=== PATIENT | female | born 1960 | race Hispanic/Latino ===

== ENCOUNTER → 2023-02-21 | Outpatient (CLI) | payer MEDICARE ==
[~2023-02-21] MED LIST: DESI25TA16 PO; DIPH25CA53 PO; LEVO100V IV; LOSA100T59 PO; PANT40TA PO; SUCR1TAB2 PO
== END | disposition home or self-care (01) ==
LOC: RAH 09:08
PROVIDERS: ATTEND Surgery
DX: K44.9 Diaphragmatic hernia without obstruction or gangrene (principal); K31.84 Gastroparesis; N19 Unspecified kidney failure; E66.9 Obesity, unspecified
CPT/HCPCS: 74240

== ENCOUNTER → 2023-02-26 | Outpatient (CLI) | payer MEDICARE | END | disposition home or self-care (01) | LOC: RAH 09:06 | PROVIDERS: ATTEND Surgery | DX: K44.9 Diaphragmatic hernia without obstruction or gangrene (principal); K31.84 Gastroparesis; N19 Unspecified kidney failure; E66.9 Obesity, unspecified | CPT/HCPCS: 78264; A9541 ==

== ENCOUNTER 2023-04-20 06:42 | Observation (INO) | payer MEDICARE ==
[~2023-04-20] VITALS: Ht 157.5 cm; Wt 120.3 kg
[~2023-04-20 06:42] MED LIST changes: +ALLO100T PO; +ATOR40TA69 PO; +BACL20TA PO; +CHOL500062 PO; -DESI25TA16 PO; +DEXL60CA6 PO; +DULA0.75 SQ; +EMPA10TA PO; +FURO20TA4 PO; +INSU100I24 SQ; -LEVO100V IV; +LEVO150C4 PO; -LOSA100T59 PO; +METO-391 PO; +MV-M1CAP24 PO; +ONDA8TAB12 PO; -PANT40TA PO; +PARO-37 PO; +PRAM0.5T12 PO; +SITA100T12 PO; +SPIR25TA6 PO; -SUCR1TAB2 PO
[2023-04-20 06:45] VITALS: BP 121/69; PULSE 65; RESP 12
[2023-04-20] MEDS ORDERED: 0.9%NACL 1000ML 1,000 ML IV ONE (07:48)
[2023-04-20 08:11] LABS: CREATININE 1.9 mg/dL (0.5-1.5); POTASSIUM 4.8 mmol/L (3.5-5.1)
[2023-04-20] MEDS ORDERED: INSULIN HUMULIN R 100 UNIT/ML 3ML SQ ONE (11:00)
[2023-04-22] MEDS ORDERED: INSU100V IV (11:41)
== END 2023-04-20 11:20 | disposition home or self-care (01) ==
LOC: DAH 06:42 → ENDO 06:42 → DAHIP 06:43 → ENDO 06:43 → DAHIP 11:20
PROVIDERS: ADMIT Surgery; ATTEND Surgery
DX: K44.9 Diaphragmatic hernia without obstruction or gangrene (principal)
CPT/HCPCS: 36415; 80048; 82948; 96360; 96361; G0378; J7030

== ENCOUNTER 2023-05-03 06:28 | Day surgery (SDC) | payer MEDICARE ==
[2023-05-03] VITALS (11 sets, daily range): BP systolic 102–136; BP diastolic 52–72; PULSE 59–76; RESP 14–17
[~2023-05-03] VITALS: Ht 157.5 cm; Wt 120.3 kg
[~2023-05-03 06:28] MED LIST changes: -DIPH25CA53 PO; +INSU100V IV
[2023-05-03] MEDS ORDERED: 0.9%NACL 1000ML 1,000 ML IV ONE (07:20)
[2023-05-03] MEDS ORDERED: DEXTROSE 50%-WATER 50 ML DISP.SYRIN IV ONE (07:21)
[2023-05-03] MEDS ORDERED: PROPOFOL 10 MG/ML 20ML VIAL IV ONE (07:25)
== END 2023-05-03 09:35 | disposition home or self-care (01) ==
LOC: ENDO 06:28 → DAH 06:28 → ENDO 09:35
PROVIDERS: ATTEND Surgery
DX: K44.9 Diaphragmatic hernia without obstruction or gangrene (principal); K31.7 Polyp of stomach and duodenum; K29.50 Unspecified chronic gastritis without bleeding; K21.9 Gastro-esophageal reflux disease without esophagitis; K22.89 Other specified disease of esophagus; K31.84 Gastroparesis; E11.22 Type 2 diabetes mellitus with diabetic chronic kidney disease; N18.30 Chronic kidney disease, stage 3 unspecified; E03.9 Hypothyroidism, unspecified; G43.909 Migraine, unspecified, not intractable, without status migrainosus; M19.90 Unspecified osteoarthritis, unspecified site; E66.9 Obesity, unspecified; Z90.49 Acquired absence of other specified parts of digestive tract; Z98.890 Other specified postprocedural states; Z90.5 Acquired absence of kidney; Z88.8 Allergy status to other drugs, medicaments and biological substances; Z79.899 Other long term (current) drug therapy; Z68.42 Body mass index [BMI] 45.0-49.9, adult
CPT/HCPCS: 82948 ×2; 43239; 43251; J7030 ×2; J7070; J2704; A4620; A4215 ×2; A4223 ×2; A7002; A4222; A4221; A4663; A4606; J3490

== ENCOUNTER → 2023-10-08 | Outpatient (CLI) | payer MEDICARE ==
[~2023-10-08] MED LIST changes: +DIATR MEGLU/DIATRIZOATE SODIUM 30 ML BOTTLE ONE; -DULA0.75 SQ; -EMPA10TA PO; +EMPA25TA PO; +FOLI0.8T22 PO; -INSU100V IV; +ONDA-245 SL; -ONDA8TAB12 PO; +PIOG30TA70 PO; -SITA100T12 PO; +TIRZ7.5P SQ
[2023-10-08 08:49] LABS: BASOPHILS # (AUTO) 0.05 K/uL (0.00-0.20); BASOPHILS % (AUTO) 0.9 % (0.0-5.0); EOSINOPHILS # (AUTO) 0.19 K/uL (0.00-0.70); EOSINOPHILS % (AUTO) 3.3 % (0.0-8.0); HEMATOCRIT 43.8 % (36-48); IMMATURE GRANULOCYTE ABSOLUTE 0.02 K/uL (0-1); LYMPHOCYTES # (AUTO) 3.2 K/uL (1.0-4.8); LYMPHOCYTES % (AUTO) 55.1 % (21.0-51.0); MEAN CORPUSCULAR HGB CONC 31.7 g/dL (32.0-36.0); MONOCYTES # (AUTO) 0.3 K/uL (0.1-1.0); MONOCYTES % (AUTO) 4.8 % (3.0-13.0); NEUTROPHILS # (AUTO) 2.1 K/uL (1.8-7.7); NEUTROPHILS % (AUTO) 35.6 % (40.0-77.0); PLATELET COUNT (AUTO) 216 K/uL (130-400); RED BLOOD CELL COUNT(AUTO) 5.15 MIL/uL (4.00-5.50); RED CELL DISTRIBUTION WIDTH 15.5 % (11.0-15.5); WHITE BLOOD COUNT (AUTO) 5.8 K/uL (4.8-10.8)
[2023-10-08 09:07] LABS: ALBUMIN 3.2 g/dL (3.5-5.0); CREATININE 1.6 mg/dL (0.5-1.0); POTASSIUM 4.3 mmol/L (3.5-5.1); TOTAL PROTEIN, SERUM 7.1 g/dL (6.0-8.3)
== END | disposition home or self-care (01) ==
LOC: RAH 08:03
PROVIDERS: ATTEND Surgery
DX: K21.9 Gastro-esophageal reflux disease without esophagitis (principal); K31.84 Gastroparesis; E08.69 Diabetes mellitus due to underlying condition with other specified complication; E66.9 Obesity, unspecified; R11.10 Vomiting, unspecified; N19 Unspecified kidney failure; Z90.49 Acquired absence of other specified parts of digestive tract; Z98.890 Other specified postprocedural states
CPT/HCPCS: 74240; 80053; 85025; 84425; 36415; Q9963

== ENCOUNTER 2023-11-21 06:30 | Day surgery (SDC) | payer MEDICARE ==
[2023-11-21] VITALS (12 sets, daily range): BP systolic 115–134; BP diastolic 57–72; PULSE 61–80; RESP 15–18
[~2023-11-21] VITALS: Ht 157.5 cm; Wt 105.7 kg
[~2023-11-21 06:30] MED LIST changes: -ALLO100T PO; -BACL20TA PO; +DEXL60CA18 PO; -DEXL60CA6 PO; -DIATR MEGLU/DIATRIZOATE SODIUM 30 ML BOTTLE ONE; -EMPA25TA PO; -INSU100I24 SQ; +INSU100V37 SQ; -MV-M1CAP24 PO; -PARO-37 PO; -PRAM0.5T12 PO; +TIRZ10PE SQ; -TIRZ7.5P SQ
[2023-11-21] MEDS: 0.9%NACL 1000ML 1,000 ML IV ONE (07:19)
[2023-11-21] MEDS ORDERED: PROPOFOL 10 MG/ML 20ML VIAL IV ONE (08:55)
[2023-11-21] MEDS ORDERED: LIDOCAINE PF 100MG/5ML (2%) SYRINGE 5ML ONE (08:55)
== END 2023-11-21 11:35 | disposition home or self-care (01) ==
LOC: ENDO 06:30 → DAH 06:30 → ENDO 11:35
PROVIDERS: ATTEND Surgery
DX: R10.13 Epigastric pain (principal); K21.00 Gastro-esophageal reflux disease with esophagitis, without bleeding; K31.89 Other diseases of stomach and duodenum; K44.9 Diaphragmatic hernia without obstruction or gangrene; G43.909 Migraine, unspecified, not intractable, without status migrainosus; K31.84 Gastroparesis; K22.89 Other specified disease of esophagus; E66.9 Obesity, unspecified; M19.90 Unspecified osteoarthritis, unspecified site; I12.9 Hypertensive chronic kidney disease with stage 1 through stage 4 chronic kidney disease, or unspecified chronic kidney disease; E11.22 Type 2 diabetes mellitus with diabetic chronic kidney disease; N18.4 Chronic kidney disease, stage 4 (severe); Z88.5 Allergy status to narcotic agent; Z88.8 Allergy status to other drugs, medicaments and biological substances; Z79.899 Other long term (current) drug therapy; Z98.84 Bariatric surgery status; Z68.41 Body mass index [BMI] 40.0-44.9, adult
CPT/HCPCS: 43239; 82948 ×2; J7030; J2001; J2704; A4620; A4215; A4223; A4222; J3490

== ENCOUNTER → 2024-05-02 | Outpatient (CLI) | payer MEDICARE ==
[~2024-05-02] MED LIST changes: +DIATR MEGLU/DIATRIZOATE SODIUM 30 ML BOTTLE ONE
--- NOTE | 2024-05-02 16:31 | HMCIMG ---
UPPER GI TRACT, WO KUB REASON: GASTROPARESIS. COMPARISON: None TECHNIQUE: Gastrografin upper GI series study was performed. FINDINGS: There is no obstruction to the antegrade passage of contrast from mild through jejunum. A normal esophageal stripping wave is seen. No evidence of hiatal hernia is seen. There is gastroesophageal reflux into the level of mid thoracic esophagus. Stomach is moderately distended. No ulceration or mass lesion is seen. Duodenal bulb and duodenal sweep are unremarkable. IMPRESSION: No obstruction is seen. Gastroesophageal reflux to the level of mid thoracic esophagus.
== END | disposition home or self-care (01) ==
LOC: RAH 08:26
PROVIDERS: ATTEND Surgery
DX: K21.00 Gastro-esophageal reflux disease with esophagitis, without bleeding (principal); K31.84 Gastroparesis; K31.89 Other diseases of stomach and duodenum
CPT/HCPCS: 74240; Q9963

== ENCOUNTER → 2024-05-12 | Outpatient (CLI) | payer MEDICARE ==
[~2024-05-12] MED LIST changes: -DIATR MEGLU/DIATRIZOATE SODIUM 30 ML BOTTLE ONE
--- NOTE | 2024-05-12 15:14 | HMCIMG ---
NM GASTRIC EMPTYING STUDY REASON: GASTROPARESIS. COMPARISON: None TECHNIQUE: Nuclear gastric emptying study was performed with 1.5 mCi of technetium sulfa colloid with scrambled eggs through oral route. FINDINGS: T half of gastric emptying is 26 minutes. IMPRESSION: Normal gastric emptying with T half of 26 minutes.
== END | disposition home or self-care (01) ==
LOC: RAH 10:12
PROVIDERS: ATTEND Surgery
DX: K31.84 Gastroparesis (principal)
CPT/HCPCS: 78264; A9541

== ENCOUNTER 2024-08-27 15:20 | Emergency (ER) | payer MEDICARE ==
[~2024-08-27] VITALS: Ht 157.5 cm; Wt 102.5 kg
[~2024-08-27 15:20] MED LIST changes: -LEVO150C4 PO; +LEVO150C5 PO
--- NOTE | 2024-08-27 15:43 | EKG ---
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
[2024-08-27 15:56] LABS: BASOPHILS # (AUTO) 0.03 K/uL (0.00-0.20); BASOPHILS % (AUTO) 0.5 % (0.0-5.0); EOSINOPHILS # (AUTO) 0.13 K/uL (0.00-0.70); EOSINOPHILS % (AUTO) 2.1 % (0.0-8.0); HEMATOCRIT 44.7 % (36-48); IMMATURE GRANULOCYTE ABSOLUTE 0.01 K/uL (0-1); LYMPHOCYTES # (AUTO) 2.8 K/uL (1.0-4.8); MEAN CORPUSCULAR HEMOGLOBIN 28.2 pg (27.0-33.0); MEAN CORPUSCULAR HGB CONC 32.7 g/dL (32.0-36.0); MEAN CORPUSCULAR VOLUME 86.5 fL (79-99); MONOCYTES # (AUTO) 0.4 K/uL (0.1-1.0); MONOCYTES % (AUTO) 6.2 % (3.0-13.0); NEUTROPHILS # (AUTO) 2.8 K/uL (1.8-7.7); PLATELET COUNT (AUTO) 264 K/uL (130-400); RED BLOOD CELL COUNT(AUTO) 5.17 MIL/uL (4.00-5.50); WHITE BLOOD COUNT (AUTO) 6.1 K/uL (4.8-10.8)
[2024-08-27 16:06] LABS: CREATININE 2.2 mg/dL (0.5-1.0); POTASSIUM 4.2 mmol/L (3.5-5.1)
[2024-08-27 16:15] LABS: ALBUMIN 3.6 g/dL (3.5-5.0); BILIRUBIN,DIRECT 0.2 mg/dL (0.0-0.3); BILIRUBIN,TOTAL 0.8 mg/dL (0.2-1.0); TOTAL PROTEIN, SERUM 7.5 g/dL (6.0-8.3)
--- NOTE | 2024-08-27 16:30 | HMCIMG ---
Exam Type: CT ABDOMEN/PELVIS W/O CONTRAST Clinical Information: abdominal pain Comparison: None CT Dose Index (CTDI): 10.20 mGy Dose Length Product (DLP): 530.00 total mGy-cm PROTOCOL: Routine noncontrast helical scanning of the abdomen and pelvis was performed at 5mm collimation. Findings: No evidence of nephro or ureterolithiasis is found. No hydronephrosis or ureteral dilatation is seen. The right kidney surgically absent. The lung bases are clear. The stomach is unremarkable. It shows no wall thickening. No gross ulceration is seen. It is not overly distended. There are no surrounding inflammatory changes. No wall lesions are identified to suggest cancer. The spleen is unremarkable. It is not enlarged. The pancreas shows normal anatomy. It is not fatty replaced. It shows no lesions. The pancreatic duct is not dilated. The gallbladder is surgically absent. The adrenal glands are unremarkable. There is no enlargement. No lesions are noted. The liver is unremarkable. It shows no focal masses. The appendix is unremarkable. It shows no evidence of inflammation. No appendicolith is seen. The small bowel is unremarkable. There is no evidence of dilatation to suggest obstruction. No evidence of adynamic ileus is seen. There is no small bowel wall thickening to suggest enteritis. The colon is unremarkable. The urinary bladder is unremarkable. There is no wall thickening to suggest tumor or inflammation. There are no intraluminal calculi. There are no diverticula. There is no evidence of chronic bladder outlet obstruction. There is no evidence of urinary bladder distention to suggest urinary retention. The other pelvic structures are unremarkable. The bony and vascular structures are unremarkable for the patient's age. IMPRESSION: No acute pathology. This study was performed using dose reduction techniques to include automated exposure control and/or adjustment of the mA and/or kV according to patient size.
[2024-08-27] MEDS: DICYCLOMINE HCL 10 MG/5 ML ML PO ONE (17:39)
[2024-08-27] MEDS: MAG/ALUM/SIMETH 30 ML UDCUP PO ONE (17:39)
[2024-08-27] MEDS: LIDOCAINE HCL 2% VISCOUS 15 ML UDCUP PO ONE (17:39)
[2024-08-27] MEDS: FAMOTIDINE 20MG VIAL IV STA (17:39)
[2024-08-27] MEDS: ondanSETRON 4MG INJ IVP STA (17:40)
[2024-08-27] MEDS: 0.9%NACL 1000ML 1,000 ML IV STA (17:40)
--- NOTE | 2024-08-27 19:30 | ERN ---
ED Note History of Present Illness Stated Complaint: ABDOMINAL PAIN Chief Complaint: Abdominal Pain Time Seen by MD: 15:25 Time Seen by Midlevel: 15:30 Dictation: 63 -year-old female coming in with complaining of �burning �sensation to the epigastric region and unable to keep food down. Patient states she has not appointment with her GI specialist Dr. Escalante on the 12th of the month but stated decided to come and be evaluated because of the pain. Allergies: Coded Allergies: morphine (Unverified Allergy, Unknown, 04/19/23) nitrofurantoin (Unverified Allergy, Unknown, 04/30/14) Home Meds Reported Medications Insulin Degludec (Tresiba) 100 Unit/Ml Vial, 100 UNIT SQ AM, VIAL 11/20/23 Tirzepatide (Mounjaro) 10 Mg/0.5 Ml Pen.injctr, 10 MG SQ QWEEK 11/20/23 Metoprolol Succinate (Metoprolol Succinate) 50 Mg Tab.er.24h, 50 MG PO AM, TAB 11/20/23 Pioglitazone HCl (Pioglitazone HCl) 30 Mg Tablet, 30 MG PO DAILY, TAB 08/08/23 Folic Acid/Vitamin B Comp W-C (Roxanne-Evgeny Tablet) 0.8 Mg Tablet, 0.8 MG PO DAILY, TAB 08/08/23 Cholecalciferol (Vitamin D3) (Vitamin D3) 125 Mcg (5000 Unit) Tab.rapdis, 125 MCG PO DAILY, TAB 04/19/23 Atorvastatin Calcium (LIPITOR) 80 Mg Tablet, 80 MG PO DAILY, TAB 04/19/23 Furosemide (Furosemide) 20 Mg Tablet, 20 MG PO BIDMEALS, TAB 04/19/23 Dexlansoprazole (Dexlansoprazole Dr) 60 Mg Cap.dr.bp, 60 MG PO ACBKFST 04/19/23 Spironolactone (Spironolactone) 25 Mg Tablet, 25 MG PO DAILY, TAB 04/19/23 Ondansetron (Ondansetron Odt) 8 Mg Tab.rapdis, 8 MG SL TID PRN for NAUSEA/VOMITING, TAB 04/19/23 Levothyroxine Sodium (Levothyroxine) 150 Mcg Capsule, 150 MCG PO ACBKFST, CAP 04/19/23 Past Medical History Past Medical History: Anxiety, Arthritis, Diabetes-Type II, Diverticulosis, GERD, Hypertension, Hypothyroid, Migraines, Renal Disese Additional Past Medical Hx: PEPTIC ULCER DISEASE / VERTIGO / FATIGUE / DYSPHAGIA / HERNIA / GASTROPARE Surgical History: Cholecystectomy, BTL Social History: Negative Review of System Dictation Constitutional: Negative for fever,chills, and weight loss Eyes: Negative for injury, pain,redness, and discharge ENT: Negative for injury,pain or swelling Cardiovascular: Negative for chest pain, palpitations, and edema Respiratory: Negative for shortness of breath, cough, and wheezing, Abdomen/GI complaining of epigastric pain, nausea, vomiting, diarrhea, and constipation Back: Negative for injury and pain : Negative for injury, bleeding and discharge MS/Extremity: Negative for injury and deformity Skin: Negative for rash, and discoloration Neuro: Negative for headache, weakness, numbness, tingling, and seizure Psych: Negative for suicide ideation, homicidal ideation, and hallucinations Review of Systems: was completed Initial Vital Sign VS Vital Signs Date Time Temp Pulse Resp B/P (MAP) Pulse Ox O2 Delivery O2 Flow Rate FiO2 08/27/24 15:22 98.2 68 16 116/85 97 Room Air 0 Physical Exam Dictation General: awake, alert, NAD Head/Face: Normocephalic, atraumatic Eyes: PERRL, EOMI, vision at baseline ENT: oral cavity clear, TMs clear, no signs of infection Neck: Trachea midline, supple, no nuchal rigidity Cardiovascular: RRR, normal S1/S2, No MRGs, no JVD Respiratory: CTAB, no respiratory distress, No rales or wheezes Abdomen: Soft, non-tender, non-distended, normal bowel sounds, no guarding or rebound. Skin: Warm, dry, normal turgor, no rash MS/Extremity: Pulses equal, no cyanosis, neurovascular intact, FROM Neuro: COAx4, GCS 15, strength 5/5, CN 2-12 intact, normal cerebellar exam, normal gait, Psych: Normal behavior, mood, and affect normal Results (Laboratory/Radiology) Laboratory/Radiology Laboratory Tests Test 08/27/24 15:46 White Blood Count 6.1 K/uL (4.8-10.8) Red Blood Count 5.17 MIL/uL (4.00-5.50) Hemoglobin 14.6 g/dL (12.0-16.0) Hematocrit 44.7 % (36-48) Mean Corpuscular Volume 86.5 fL (79-99) Mean Corpuscular Hemoglobin 28.2 pg (27.0-33.0) Mean Corpuscular Hemoglobin Concent 32.7 g/dL (32.0-36.0) Red Cell Distribution Width 13.0 % (11.0-15.5) Platelet Count 264 K/uL (130-400) Mean Platelet Volume 12.2 fL (7.5-10.5) H Immature Granulocyte % (Auto) 0.2 % (0-1) Neutrophils (%) (Auto) 45.0 % (40.0-77.0) Lymphocytes (%) (Auto) 46.0 % (21.0-51.0) Monocytes (%) (Auto) 6.2 % (3.0-13.0) Eosinophils (%) (Auto) 2.1 % (0.0-8.0) Basophils (%) (Auto) 0.5 % (0.0-5.0) Neutrophils # (Auto) 2.8 K/uL (1.8-7.7) Lymphocytes # (Auto) 2.8 K/uL (1.0-4.8) Monocytes # (Auto) 0.4 K/uL (0.1-1.0) Eosinophils # (Auto) 0.13 K/uL (0.00-0.70) Basophils # (Auto) 0.03 K/uL (0.00-0.20) Absolute Immature Granulocyte (auto 0.01 K/uL (0-1) Nucleated Red Blood Cells 0.0 % (0.0-0.19) Sodium Level 138 mmol/L (136-145) Potassium Level 4.2 mmol/L (3.5-5.1) Chloride Level 101 mmol/L (101-111) Carbon Dioxide Level 32 mmol/L (21-32) Blood Urea Nitrogen 20 mg/dL (7-18) H Creatinine 2.2 mg/dL (0.5-1.0) H Glomerular Filtration Rate Calc 25 mL/min (>90) Random Glucose 142 mg/dL (70-105) H Total Calcium 9.3 mg/dL (8.5-10.1) Total Bilirubin 0.8 mg/dL (0.2-1.0) Direct Bilirubin 0.2 mg/dL (0.0-0.3) Aspartate Amino Transf (AST/SGOT) 47 U/L (10-37) H Alanine Aminotransferase (ALT/SGPT) 31 U/L (12-78) Alkaline Phosphatase 109 U/L (50-136) Troponin I High Sensitivity < 4 ng/L (4-50) L Total Protein 7.5 g/dL (6.0-8.3) Albumin 3.6 g/dL (3.5-5.0) Lipase 39 U/L (16-77) Labs Reviewed?: Yes ED Course ED Course Orders Procedure Category Date Status Time Cbc With Differential LAB 08/27/24 Complete 15:32 Basic Metabolic Panel LAB 08/27/24 Complete 15:32 Hepatic Function Panel LAB 08/27/24 Complete 15:32 Lipase LAB 08/27/24 Complete 15:32 0.9%Nacl 1000ml (Ns PHA 08/27/24 Complete 1000ml) 15:32 Ondansetron 4mg Inj PHA 08/27/24 Complete (Zofran 4mg Inj) 15:32 Famotidine 20mg Vial PHA 08/27/24 Complete (Pepcid 20mg Vial) 15:32 Lidocaine Hcl 2% PHA 08/27/24 Complete Viscous (Lidocaine Hcl 16:00 Mag/Alum/Simeth 30ml PHA 08/27/24 Complete (Maalox Plus 30ml) 16:00 Dicyclomine Hcl PHA 08/27/24 Complete (Bentyl 10mg/5ml 16:00 12 Lead Ekg Tracing- EKG 08/27/24 Complete Technical 15:32 Troponin I High LAB 08/27/24 Complete Sensitivity 15:32 Ct Abdomen/Pelvis W/O CT 08/27/24 Resulted Contrast 16:09 Current Medications Medications (Trade) Dose Ordered Sig/Amanda Route PRN Reason Start Time Stop Time Status Last Admin Dose Admin Al Hydroxide/Mg Hydroxide (MAALox PLUS 30ML) 30 ml ONCE ONCE PO 08/27/24 16:00 08/27/24 16:01 DC 08/27/24 17:39 Dicyclomine HCl (Bentyl 10mg/5ml Syrup) 10 mg ONCE ONCE PO 08/27/24 16:00 08/27/24 16:01 DC 08/27/24 17:39 Famotidine (Pepcid 20mg Vial) 20 mg ONCE STAT IV 08/27/24 15:32 08/27/24 15:36 DC 08/27/24 17:39 Lidocaine HCl (Lidocaine HCl 2% Viscous) 10 ml ONCE ONCE PO 08/27/24 16:00 08/27/24 16:01 DC 08/27/24 17:39 Ondansetron HCl (zoFRAN 4MG INJ) 4 mg ONCE STAT IVP 08/27/24 15:32 08/27/24 15:36 DC 08/27/24 17:40 Sodium Chloride 1,000 ml @ 1,000 mls/hr Q1H STAT IV 08/27/24 15:32 08/27/24 16:31 DC 08/27/24 17:40 Vital Signs Date Time Temp Pulse Resp B/P (MAP) Pulse Ox O2 Delivery O2 Flow Rate FiO2 08/27/24 15:22 98.2 68 16 116/85 97 Room Air 0 Medical Decision Making MDM MDM: 63 -year-old female coming in with complaining of �burning �sensation to the epigastric region and unable to keep food down. Patient states she has not appointment with her GI specialist Dr. Escalante on the 12th of the month but stated decided to come and be evaluated because of the pain.CBC shows no leukocytosis no anemia, no thrombocytopenia. Chemistry shows no electrolyte abnormality. No transaminitis, no T bili or lipase abnormality. BUN 20 creatinine is 2.2. Patient has blood work with her that states in 07/30/24 she had blood work done wh ere her creatinine was 1.9. And states she has a history of kidney injury already. After pain medication patient states she feels much better. Educated patient she is already taking is omeprazole and famotidine to continue taking those meds but to increase up somewhat need 40 mg b.i.d. and keep her Esomeprazole once a day. At least until she sees her GI specialist on the . Patient verbalized understanding, answered all questions. Differential diagnosis: GERD, gastritis, pancreatitis Rationale: Tests considered and ordered secondary to shared decision making include: Previous outside records reviewed: Old ER visits. Risk of complication and/or morbidity or mortality of patient management: None Medications-Per medication reconciliation Need for hospitalization: Patient does not meet criteria for hospitalization. Need for emergency major/minor surgery: No There are no social concerns with this patient. Prescription drug management Prescriptions will include symptomatic care Patient's prior external medical records from other ER visits were reviewed by me as indicated. Prior testing and results from previous visits were reviewed. Prior tests were taken into account with medical decision making and resource utilization, independent historian/historians were used to obtain complete medical history. I independently interpreted the test that were performed, results were reviewed by me and considered findings on radiology if ordered. Medical management and examination interpretation discussions were had by me with other qualified healthcare professionals as indicated for the patient's care. DX & DISP Disposition: Discharge Departure Impression: Primary Impression: Renal insufficiency Additional Impression: Gastritis Condition: Stable Additional Instructions: Please continue taking your medications as prescribed. Remember to increase your your famotidine twice a day at least until you see your GI specialist. Return to the hospital if you have any worsening symptoms. Referrals: AZALIA TRONCOSO JR (PCP) Time of Disposition: 19:29 I have reviewed the case, and I agree with, Diagnosis and Plan SHERLY DE PAZ NP August 27, 2024 19:30
[2024-08-27 19:58] VITALS: BP 137/59; PULSE 78; RESP 18; TEMP 97.7; O2SAT 98
== END 2024-08-27 19:59 | disposition home or self-care (01) ==
LOC: EDH 15:20
DX: N28.9 Disorder of kidney and ureter, unspecified (principal); K29.70 Gastritis, unspecified, without bleeding; E03.9 Hypothyroidism, unspecified; E11.9 Type 2 diabetes mellitus without complications; I10 Essential (primary) hypertension; M19.90 Unspecified osteoarthritis, unspecified site; Z79.84 Long term (current) use of oral hypoglycemic drugs; Z79.85 Long-term (current) use of injectable non-insulin antidiabetic drugs; Z79.899 Other long term (current) drug therapy; Z88.1 Allergy status to other antibiotic agents; Z88.5 Allergy status to narcotic agent; Z90.49 Acquired absence of other specified parts of digestive tract; Z98.51 Tubal ligation status
CPT/HCPCS: 99285; 74176; 96374; 96361; 96375; 80076; 84484; 80048; 83690; 85025; 36415; 93005; J3490; J7030; J2405